=== PATIENT | female | born 1955 | race African-American/Black ===

== ENCOUNTER 2023-06-08 23:58 | Inpatient (IN) | payer MEDICARE ==
[2023-06-09] MEDS ORDERED: Pantoprazole 40 MG VIAL ONE ×2 (00:40→03:31)
[2023-06-09 00:46] LABS: PTT 29.9 sec (22.0-33.0)
[2023-06-09 00:48] LABS: ALT (SGPT) 12 U/L (8-55); AST (SGOT) 33 U/L (5-34); Albumin 3.6 g/dL (3.4-4.8); Alkaline Phosphatase 72 U/L (40-110); Anion Gap 13 mmol/L (10-20); BUN (Urea Nitrogen) 18 mg/dL (9.8-20.1); Bilirubin, Total 0.5 mg/dL (0.2-1.2); Calc. Creatinine Clearance 0 mL/min (70-130); Calcium 8.9 mg/dL (7.8-10.44); Carbon Dioxide 25 mmol/L (23-31); Chloride 106 mmol/L (98-107); Estimated GFR 86; Globulin 4.8 g/dL (2.4-3.5); Glucose 146 mg/dL (80-115); Lipase 35 U/L (8-78); Protein, Total 8.4 g/dL (5.8-8.1); Sodium 140 mmol/L (136-145)
[2023-06-09 00:53] LABS: #Monocytes 0.3 10x3/uL (0.0-1.1); #Neutrophils 8.6 10x3/uL (1.5-8.4); %Basophils 0.2 % (0.0-2.0); %Lymphocytes 11.7 % (18.0-47.0); %Monocytes 2.8 % (0.0-10.0); Hematocrit 42.1 % (34.9-44.5); Hemoglobin 13.2 g/dL (12.0-15.5); Mean Corpuscular HGB CONC 31.4 g/dL (32.0-36.0); Mean Corpuscular Hemoglobin 23.9 pg (27.0-33.0); Mean Corpuscular Volume 76.3 fl (81.6-98.3); Mean Platelet Volume 10.1 fl (7.4-10.4); Platelet Count 235 10x3/uL (150-450); RBC Distribution Width 17.1 % (11.5-14.5); Red Blood Cell (RBC) Count 5.52 10x6/uL (3.90-5.03); White Blood Cell (WBC) Count 10.2 10x3/uL (3.5-10.5)
[2023-06-09 01:28] LABS: Bilirubin Neg (Negative); Blood, Urine 10 (Negative); Glucose, Urine (Dipstick) Normal (Negative); Ketone, Urine Negative (Negative); Leukocyte Negative (Negative); Nitrite Negative (Negative); Protein, Urine (Dipstick) 100 mg/dl (Neg-Trace)
[2023-06-09 01:39] LABS: Clarity Clear (Clear)
[2023-06-09 01:44] LABS: Bacteria/HPF Rare-Few HPF (None Seen); CAUTI Indications for Culture Pelvic or flank pain; RBC/HPF 0-3 HPF (0-3); Squamous Epithelial 0-3 HPF (0-3); Transitional Epithelial 0-3 HPF (None Seen); Urine Culture Reflex No No; WBC/HPF 0-3 HPF (0-3)
[2023-06-09 04:23] LABS: Hematocrit 39.3 % (34.9-44.5); Hemoglobin 12.2 g/dL (12.0-15.5); Platelet Count 214 10x3/uL (150-450)
[2023-06-09] MEDS ORDERED: Pantoprazole 80 MG, Admixture Fee 1 EACH in Sodium Chloride 0.9% 100 ML IVP SCH (06:15)
[2023-06-09] MEDS ORDERED: hydrALAZINE 20 MG/ML VIAL SLOW IVP PRN (06:40)
[2023-06-09] MEDS: Sodium Chloride 0.9% 1,000 ML IV SCH (06:55)
[2023-06-09 07:08] LABS: Hematocrit 37.2 % (34.9-44.5)
[2023-06-09 07:19] LABS: Magnesium 1.7 mg/dL (1.6-2.6)
[2023-06-09 10:39] LABS: Hematocrit 35.9 % (34.9-44.5)
[2023-06-09] MEDS ORDERED: Iopamidol 300 61% 100 ML VIAL FS ONE (12:30)
[2023-06-09 14:25] LABS: Hematocrit 35.6 % (34.9-44.5)
[2023-06-09 17:35] VITALS: BMI 41.4
[2023-06-09 19:23] LABS: Hematocrit 38.3 % (34.9-44.5)
[2023-06-10 07:41] LABS: #Eosinphils 0.1 10x3/uL (0.0-0.5); #Monocytes 0.3 10x3/uL (0.0-1.1); #Neutrophils 2.9 10x3/uL (1.5-8.4); %Basophils 0.4 % (0.0-2.0); %Eosinophils 1.8 % (0.0-6.0); %Lymphocytes 26.7 % (18.0-47.0); %Monocytes 7.6 % (0.0-10.0); %Neutrophils 63.3 % (40.0-75.0); Hematocrit 34.1 % (34.9-44.5); Hemoglobin 10.8 g/dL (12.0-15.5); Mean Corpuscular HGB CONC 31.7 g/dL (32.0-36.0); Mean Corpuscular Hemoglobin 24.7 pg (27.0-33.0); Mean Corpuscular Volume 77.9 fl (81.6-98.3); Mean Platelet Volume 10.7 fl (7.4-10.4); Platelet Count 147 10x3/uL (150-450); RBC Distribution Width 16.7 % (11.5-14.5); Red Blood Cell (RBC) Count 4.38 10x6/uL (3.90-5.03); White Blood Cell (WBC) Count 4.5 10x3/uL (3.5-10.5)
[2023-06-10 08:14] LABS: Anion Gap 10 mmol/L (10-20); BUN (Urea Nitrogen) 11 mg/dL (9.8-20.1); Calc. Creatinine Clearance 124 mL/min (70-130); Calcium 8.4 mg/dL (7.8-10.44); Carbon Dioxide 24 mmol/L (23-31); Chloride 108 mmol/L (98-107); Estimated GFR 95; Glucose 84 mg/dL (80-115); Potassium 3.4 mmol/L (3.5-5.1); Sodium 139 mmol/L (136-145)
[2023-06-10] MEDS ORDERED: PROPOFOL 20 ML ONE (14:29)
[2023-06-10] MEDS ORDERED: Esmolol 100 MG/10 ML VIAL ONE (14:33)
[2023-06-10] MEDS: Amlodipine 10 MG TAB PO SCH (15:30)
[2023-06-10] MEDS: busPIRone HCl 15 MG TAB PO SCH (15:30)
[2023-06-10] MEDS: Metoprolol Tartrate 25 MG TAB PO SCH (21:29)
[2023-06-10] MEDS: Aripiprazole 10 MG TAB PO SCH (21:29)
[2023-06-10] MEDS: hydrALAZINE 25 MG TAB PO SCH (21:29)
[2023-06-11 06:03] LABS: Anion Gap 13 mmol/L (10-20); BUN (Urea Nitrogen) 8 mg/dL (9.8-20.1); Calc. Creatinine Clearance 122 mL/min (70-130); Calcium 8.8 mg/dL (7.8-10.44); Carbon Dioxide 22 mmol/L (23-31); Chloride 106 mmol/L (98-107); Estimated GFR 95; Glucose 81 mg/dL (80-115); Potassium 3.5 mmol/L (3.5-5.1); Sodium 137 mmol/L (136-145)
[2023-06-11 07:07] LABS: #Eosinphils 0.1 10x3/uL (0.0-0.5); #Monocytes 0.4 10x3/uL (0.0-1.1); #Neutrophils 3.3 10x3/uL (1.5-8.4); %Basophils 0.6 % (0.0-2.0); %Eosinophils 1.7 % (0.0-6.0); %Lymphocytes 29.1 % (18.0-47.0); %Monocytes 7.8 % (0.0-10.0); %Neutrophils 60.6 % (40.0-75.0); Hematocrit 34.7 % (34.9-44.5); Hemoglobin 10.9 g/dL (12.0-15.5); Mean Corpuscular HGB CONC 31.4 g/dL (32.0-36.0); Mean Corpuscular Hemoglobin 24.3 pg (27.0-33.0); Mean Corpuscular Volume 77.3 fl (81.6-98.3); Platelet Count 158 10x3/uL (150-450); RBC Distribution Width 16.4 % (11.5-14.5); Red Blood Cell (RBC) Count 4.49 10x6/uL (3.90-5.03); White Blood Cell (WBC) Count 5.4 10x3/uL (3.5-10.5)
[2023-06-11] MEDS: Lisinopril 5 MG TAB PO SCH (08:36)
[2023-06-11] MEDS: Amlodipine 10 MG TAB PO SCH (08:36)
[2023-06-11] MEDS: Sertraline 25 MG TAB PO SCH (08:37)
[2023-06-11] MEDS: Multivit, Therapeutic 1 TAB PO SCH (08:38)
[2023-06-11] MEDS: Pantoprazole 40 MG VIAL IVP SCH (08:38)
[2023-06-11] MEDS: Polyethylene Glycol 3350 17 GM Packet PO SCH (08:38)
[2023-06-11 13:51] VITALS: BP 121/61; TEMP 98.6
== END 2023-06-11 13:57 | DRG 392 ==
LOC: CSHERS 23:58 → CSHERHOLD 06-09 04:05 → CSHTELE 06-09 16:27
PROVIDERS: ADMIT Family Medicine; ATTEND Internal Medicine
PROC: 0DJ08ZZ Inspection of Upper Intestinal Tract, Via Natural or Artificial Opening Endoscopic (ICD-10-PCS; principal; 2023-06-10)
DX: K52.9 Noninfective gastroenteritis and colitis, unspecified (principal); F03.94 Unspecified dementia, unspecified severity, with anxiety; I69.352 Hemiplegia and hemiparesis following cerebral infarction affecting left dominant side; K92.0 Hematemesis; I10 Essential (primary) hypertension; K44.9 Diaphragmatic hernia without obstruction or gangrene; D63.8 Anemia in other chronic diseases classified elsewhere; K21.9 Gastro-esophageal reflux disease without esophagitis; F32.A Depression, unspecified; Z79.899 Other long term (current) drug therapy; Z86.711 Personal history of pulmonary embolism; Z79.01 Long term (current) use of anticoagulants; Z98.890 Other specified postprocedural states
CPT/HCPCS: 36415; 36416; 51701; 71045; 74177; 80048; 80053; 81001; 83690; 83735; 85025; 85610; 85730; 86850; 86900; 86901; 93005; 96365; 96366; 96376; 97139; C9113; J2704; J7050; Q9967